=== PATIENT | male | born 1975 ===

== ENCOUNTER 2016-11-13 19:38 | Emergency (ER) | payer BC, OTHER ==
[~2016-11-13] VITALS: Ht 185.4 cm; Wt 74.8 kg
== END 2016-11-13 20:37 | disposition short-term general hospital (02) ==
LOC: ER 19:38
DX: S16.1XXA Strain of muscle, fascia and tendon at neck level, initial encounter (principal); R51 Headache; V89.2XXA Person injured in unspecified motor-vehicle accident, traffic, initial encounter

== ENCOUNTER 2017-02-03 16:24 | Emergency (ER) | payer OTHER ==
[~2017-02-03] VITALS: Ht 185.4 cm; Wt 83.9 kg
== END 2017-02-03 19:15 | disposition short-term general hospital (02) ==
LOC: ER 16:24
PROC: 0HQLXZZ Repair Left Lower Leg Skin, External Approach (ICD-10-PCS; principal; 2017-02-03)
PROC: 2W3RX1Z Immobilization of Left Lower Leg using Splint (ICD-10-PCS; 2017-02-03)
DX: S82.402A Unspecified fracture of shaft of left fibula, initial encounter for closed fracture (principal); S81.812A Laceration without foreign body, left lower leg, initial encounter; Z23 Encounter for immunization; W55.22XA Struck by cow, initial encounter
CPT/HCPCS: J0690; J1170; J2405